=== PATIENT | male | born 1970 ===

== ENCOUNTER 2019-10-29 19:33 | Emergency (ER) | payer OTHER ==
[~2019-10-29] VITALS: Ht 182.9 cm; Wt 86.2 kg
== END 2019-10-29 20:56 | disposition home or self-care (01) ==
LOC: ER 19:33
DX: S61.252A Open bite of right middle finger without damage to nail, initial encounter (principal); W54.0XXA Bitten by dog, initial encounter; Y93.89 Activity, other specified; Y92.89 Other specified places as the place of occurrence of the external cause; Y99.8 Other external cause status

== ENCOUNTER 2022-06-13 12:23 | Emergency (ER) | payer OTHER ==
[~2022-06-13] VITALS: Ht 182.9 cm; Wt 88.5 kg
== END 2022-06-13 17:12 | disposition home or self-care (01) ==
LOC: ER 12:23
DX: K52.9 Noninfective gastroenteritis and colitis, unspecified (principal)

== ENCOUNTER 2022-12-11 20:49 | Emergency (ER) | payer OTHER ==
[~2022-12-11] VITALS: Ht 182.9 cm; Wt 90.7 kg
== END 2022-12-11 22:37 | disposition home or self-care (01) ==
LOC: ER 20:49
DX: R50.9 Fever, unspecified (principal); I10 Essential (primary) hypertension; Z20.822 Contact with and (suspected) exposure to COVID-19

== ENCOUNTER 2024-08-12 07:49 | Outpatient (CLI) | payer OTHER | END 2024-08-12 07:53 | disposition home or self-care (01) | LOC: RAD 07:49 | PROVIDERS: ATTEND Surgery | DX: Z01.818 Encounter for other preprocedural examination (principal); Z00.00 Encounter for general adult medical examination without abnormal findings ==

== ENCOUNTER 2025-02-04 08:53 | Outpatient (CLI) | payer OTHER | END 2025-02-04 08:56 | disposition home or self-care (01) | LOC: RAD 08:53 | PROVIDERS: ATTEND Surgery | DX: K62.82 Dysplasia of anus (principal); L29.0 Pruritus ani; Z01.818 Encounter for other preprocedural examination ==

== ENCOUNTER 2025-02-15 07:00 | Day surgery (SDC) | payer OTHER ==
[2025-02-09 11:25] VITALS: BP 121/83
[~2025-02-15] VITALS: Ht 182.9 cm; Wt 88.9 kg
[~2025-02-15 07:00] MED LIST: PREVACID30 MG PO; TADALAFIL5 MG PO
[2025-02-15] MEDS ORDERED: METRONIDAZOLE/SODIUM CHLORIDE 500 MG/100 ML PIGGYBACK IV ONE (07:35)
[2025-02-15] MEDS ORDERED: CEFTRIAXONE SODIUM 2,000 MG VIAL ONE (07:35)
[2025-02-15] MEDS ORDERED: HEMOSTATIC MATRIX 1 KIT KIT TOP ONE (08:47)
[2025-02-15] MEDS ORDERED: BUPIVACAINE HCL/Mpf 0.5% 10ML VIAL ONE (08:47)
[2025-02-15] MEDS ORDERED: POVIDONE-IODINE 118 ML BOTT TOP ONE (08:47)
[2025-02-15] MEDS ORDERED: DIBUCAINE 30 GM TUBE ONE (08:47)
[2025-02-15] MEDS ORDERED: LIDOCAINE HCL 1%/EPINEPHRINE 20ML VIAL IJ ONE (08:48)
[2025-02-15] MEDS ORDERED: CELECOXIB200 MG PO (12:04)
[2025-02-15] MEDS ORDERED: NEURONTIN300 MG PO (12:04)
[2025-02-15] MEDS ORDERED: TRAM1TAB98 PO (12:05)
== END 2025-02-15 15:40 | disposition home or self-care (01) ==
LOC: CIR.AMB 07:00
PROVIDERS: ATTEND Surgery
DX: R85.612 Low grade squamous intraepithelial lesion on cytologic smear of anus (LGSIL) (principal); L29.0 Pruritus ani